=== PATIENT | female | born 1990 | race Caucasian/White ===

== ENCOUNTER 2022-11-06 20:13 | Emergency (ER) | payer OTHER, SELFPAY ==
[2022-11-06 20:28] VITALS: BP 124/79; PULSE 83; RESP 18; TEMP 37.2; O2SAT 98; BMI 45.7
--- NOTE | 2022-11-06 20:36 | XR_ITS ---
The [address] [address] Patient Name: ELIESER CARNES MRN: [id number] date: 1990 Sex: F Assigned Patient Location: ER Current Patient Location: ED.MAIN Accession/Order Number: [id number] Exam Date: 11/06/2022 20:45 Report Date: 11/06/2022 21:04 At the request of: ALEXANDRE MARKER Procedure: XR elbow LT 2V EXAM: XR elbow LT 2V HISTORY: The patient is a 32-year-old female, fall, elbow pain COMPARISON: None. FINDINGS: These 2 views of the left elbow are radiographically negative with no evidence of fracture, dislocation, fat pad elevation, or other osseous or articular abnormalities. IMPRESSION: Negative. Electronically authenticated by: LISS BISHOP Date: 11/06/2022 21:04
--- NOTE | 2022-11-06 21:06 | PC.NURSE ---
Pt presents to ER for left elbow pain after tripping over a toy of her richard and striking the left elbow on a chair Pt states the pain is to the bottom of her elbow as well as over the elbow Pt has full mobility of the arm though it causes more pain MSP's intact did not take any form of medication prior to arrival
--- NOTE | 2022-11-06 21:07 | ED.UPPEXIN1 ---
HPI - Extremity Injury (Upper) General Chief Complaint: Extremity Injury, Upper Stated Complaint: ELBOW INJURY Time Seen by Provider: 11/06/22 20:28 Source: patient Mode of arrival: walk-in Limitations: no limitations History of Present Illness HPI narrative: patient is a 32-year-old female who presents to the emergency department for the evaluation of an injury to the left elbow. Patient states that she hit her left elbow on a table several hours ago. She complains of pain over the left olecranon. She reports worsening pain with flexion and extension. She had no other associated injuries. No medications taken prior to arrival. She is not concerned for . Related Data Home Medications Medication Instructions Recorded Confirmed albuterol sulfate 90 mcg/actuation 2 inh inhalation Q4H PRN shortness 11/06/22 11/06/22 aerosol inhaler (ProAir HFA) of breath or wheezing loratadine 10 mg tablet 10 mg PO Q24H 11/06/22 11/06/22 metoprolol succinate 25 mg 50 mg PO DAILY 11/06/22 11/06/22 tablet,extended release 24 hr Previous Rx's Medication Instructions Recorded tramadol 50 mg tablet 50 mg PO Q6H PRN pain #10 tabs 11/06/22 Allergies Allergy/AdvReac Type Severity Reaction Status Date / Time ibuprofen [From Motrin] Allergy Hives Verified 11/06/22 20:34 Review of Systems ROS Constitutional Denies: fever or chills Ears, nose, mouth, and throat Denies: throat pain or neck pain Cardiovascular Denies: chest pain Respiratory Denies: shortness of breath or cough Gastrointestinal Denies: nausea or vomiting Musculoskeletal Denies: back pain or neck pain Integumentary/Breast Denies: rash or itching Hematologic/Lymphatic Denies: easy bruising Allergic/Immunologic Denies: hives [facility] Medical History (Updated 11/06/22 @ 21:10 by GALE Viera) Social History Smoking status: Current every day smoker Exam Narrative Exam Narrative: Gen.: Awake, alert, in no distress Head: Normocephalic, atraumatic ENT: Moist mucous membranes Respiratory: No respiratory distress, lungs clear bilaterally Cardio: Regular rate and rhythm Gastrointestinal: Abdomen is soft, nondistended and nontender to palpation Extremities: diffuse tenderness of the olecranon of the left elbow with no significant edema, ecchymosis or obvious deformity. 2+ left radial pulse. 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 No bony tenderness of the left forearm. Patient is able to flex at the left elbow, unable to fully extend and lock the left elbow due to pain. Psych: Normal mood and affect Neuro: No focal neuro deficit Skin: Warm, dry, intact Constitutional Vital Signs - 24 hr 11/06/22 20:28 Temperature 98.9 F Pulse Rate [Monitor] 83 Respiratory Rate 18 Blood Pressure [Right Arm] 124/79 H Pulse Oximetry 98 Oxygen Delivery Method Room Air Course Vital Signs Vital signs: Vital Signs Temperature 98.9 F 11/06/22 20:28 Pulse Rate 83 11/06/22 20:28 Respiratory Rate 18 11/06/22 20:28 Blood Pressure 124/79 H 11/06/22 20:28 Pulse Oximetry 98 11/06/22 20:28 Oxygen Delivery Method Room Air 11/06/22 20:28 Temperature 98.9 F 11/06/22 20:28 Pulse Rate 83 11/06/22 20:28 Respiratory Rate 18 11/06/22 20:28 Blood Pressure 124/79 H 11/06/22 20:28 Pulse Oximetry 98 11/06/22 20:28 Oxygen Delivery Method Room Air 11/06/22 20:28 MDM - Extremity Injury (Upper) MDM Narrative Medical decision making narrative: x-rays of the left elbow with no evidence of fracture or dislocation. These are reviewed by the radiologist. Rest, ice, elevate. An Smooth wrap was applied in the Emergency Room for comfort. Follow-up with PCP and return to the Emergency Room if symptoms change or worsen. Work note provided. Short course of analgesics given for home as the patient is ALLERGIC to NSAIDs. Medical Records Attestation: I reviewed the patient's medical records. Imaging Data XR left elbow: Attestation: I have reviewed the pertinent imaging results. Discharge Plan Discharge Chief Complaint: Extremity Injury, Upper Clinical Impression: Contusion of left elbow Patient Disposition: Home, Self-Care Time of Disposition Decision: 21:09 Condition: Good Prescriptions / Home Meds: New tramadol 50 mg tablet 50 mg PO Q6H PRN (Reason: pain) Qty: 10 0RF No Action albuterol sulfate [ProAir HFA] 90 mcg/actuation HFA aerosol inhaler 2 inh INHALATION Q4H PRN (Reason: shortness of breath or wheezing) loratadine 10 mg tablet 10 mg PO Q24H metoprolol succinate 25 mg tablet extended release 24 hr 50 mg PO DAILY Instructions: Contusion in Adults (ED) Stand Alone Forms: Portal Instructions Referrals: Efraín Branch [Primary Care Provider] - 1 week
== END 2022-11-06 21:36 | disposition home or self-care (01) ==
PROVIDERS: Emergency Provider Emergency Medicine; PCP Physician Assistant
DX: S50.02XA Contusion of left elbow, initial encounter (principal); W22.03XA Walked into furniture, initial encounter; Z79.899 Other long term (current) drug therapy; F17.210 Nicotine dependence, cigarettes, uncomplicated
CPT/HCPCS: 73070; 99283